=== PATIENT | female | born 1950 | race Caucasian/White ===

== ENCOUNTER → 2020-06-27 10:05 | Outpatient (CLI) | payer MEDICARE, OTHER, SELFPAY ==
[2020-06-27 11:54] LABS: Cholesterol 167 mg/dL (140-199); HDL Cholesterol 87 mg/dL (40-60); LDL Cholesterol Calculated 70 mg/dL (<100); Triglycerides 51 mg/dL (35-150)
== END ==
PROVIDERS: Referring Provider Internal Medicine Cardiovascular Disease; Visit Provider Internal Medicine Cardiovascular Disease
DX: E78.49 Other hyperlipidemia (principal)
CPT/HCPCS: 36415; 80061

== ENCOUNTER → 2020-08-10 13:17 | Outpatient (CLI) | payer MEDICARE, OTHER, SELFPAY ==
[2020-08-12 09:29] LABS: COVID19 Sendout Not Detected (Not Detect)
== END ==
PROVIDERS: Visit Provider Physician Assistant
DX: Z11.59 Encounter for screening for other viral diseases (principal)
CPT/HCPCS: 87635

== ENCOUNTER → 2021-06-14 16:30 | Outpatient (CLI) | payer MEDICARE, OTHER, SELFPAY ==
[2021-06-14 17:57] LABS: COVID19 -Nasal RAPID Negative (Negative)
== END ==
PROVIDERS: Referring Provider Physician Assistant; Visit Provider Physician Assistant
DX: J02.9 Acute pharyngitis, unspecified (principal); R11.0 Nausea; R51.9 Headache, unspecified; R53.83 Other fatigue
CPT/HCPCS: 87635

== ENCOUNTER → 2021-08-05 08:22 | Outpatient (CLI) | payer MEDICARE, OTHER, SELFPAY ==
[2021-08-05 10:27] LABS: Cholesterol 180 mg/dL (140-199); HDL Cholesterol 90 mg/dL (40-60); LDL Cholesterol Calculated 79 mg/dL (<100); Triglycerides 53 mg/dL (35-150)
== END ==
PROVIDERS: Referring Provider Internal Medicine Cardiovascular Disease; Visit Provider Internal Medicine Cardiovascular Disease
DX: E78.49 Other hyperlipidemia (principal)
CPT/HCPCS: 36415; 80061